=== PATIENT | male | born 1940 | race African-American/Black ===

== ENCOUNTER 2016-11-10 16:15 | Emergency (ER) | payer OTHER ==
[~2016-11-10] VITALS: Ht 182.9 cm; Wt 78.0 kg
[~2016-11-10 16:15] MED LIST: AMLO5TAB22 PO; ASPI325T PO; LISI-363 PO; LORA0.5T PO; LORTA5 PO; METF-324 PO; PROT40TA PO; RANI150 PO
[2016-11-10 16:20] VITALS: BP 168/78; PULSE 44; RESP 14; TEMP 97.7; O2SAT 97
[2016-11-10 16:55] VITALS: BP 164/90; PULSE 65; RESP 15; O2SAT 99
[2016-11-10] MEDS ORDERED: METF-382 PO (17:00)
[2016-11-10] MEDS ORDERED: LISI-515 PO (17:00)
[2016-11-10] MEDS ORDERED: AMLO5TAB2 PO (17:00)
[2016-11-10] MEDS ORDERED: LORA-373 PO (17:00)
[2016-11-10] MEDS ORDERED: ASPI1TAB69 PO (17:00)
--- NOTE | 2016-11-10 17:26 | RADRPT ---
EXAM DATE/TIME: 11/10/2016 17:01 [facility] COMPARISON: ABDOMEN FLAT & UPRIGHT, April 13, 2016, 16:23. INDICATIONS : Shortness of breath. MEDICAL HISTORY : None. SURGICAL HISTORY : None. ENCOUNTER: Initial ACUITY: 1 day PAIN SCORE: 0/10 LOCATION: Bilateral chest FINDINGS: The heart is mildly enlarged. There are chronic appearing interstitial changes. The lungs are otherwi se clear. Visualized bony structures are grossly intact. CONCLUSION: 1. Chronic appearing interstitial changes. No acute abnormality. Anthony Morse MD on November 10, 2016 at 17:23 Board Certified Radiologist. This report was verified electronically.
--- NOTE | 2016-11-10 17:33 | PD ---
HPI Chief Complaint: Cardiac Complaint Time Seen by Provider: 16:46 Travel History International Travel<30 days: No Contact w/Intl Traveler<30days: No Traveled to known affect area: No History of Present Illness HPI 76-year-old male complains of right foot weakness. Patient states that the symptoms started 2 days ago. Patient has history of CVA in 2008 with resultant in the extremity weakness since then. Patient states that he has increasing weakness and right foot for the past 2 days. Patient denies any headache. Patient denies any chest pain or shortness of breath. Patient denies abdominal pain. Patient denies any other focal weakness or numbness of extremity. Patient denies any problem with bowel or bladder control. Patient has history of hypertension, diabetes, is lipedema. Patient is a smoker. Patient denies any problem with speech or visual problem. PFSH Past Medical History Hx Anticoagulant Therapy: Yes (ASPRIN ) Atrial Fibrillation: Yes Blood Disorders: No Anxiety: Yes Cancer: No Cardiovascular Problems: Yes High Cholesterol: Yes Chemotherapy: No Cerebrovascular Accident: Yes (2008) Diabetes: Yes Patient Takes Glucophage: Yes (11/07/16 0900) Diminished Hearing: No Endocrine: Yes Genitourinary: No Hiatal Hernia: Yes Hypertension: Yes Immune Disorder: No Musculoskeletal: No Neurologic: No Psychiatric: No Reproductive: No Respiratory: No Past Surgical History Abdominal Surgery: Yes Other Surgery: Yes (hernia surgery, twisted colon surgery) Social History Alcohol Use: No Tobacco Use: Yes Substance Use: No Allergies-Medications (Allergen,Severity, Reaction): Coded Allergies: No Known Allergies (Verified , 05/02/16) Reported Meds & Prescriptions Reported Meds & Active Scripts Active Reported Metformin ER (Metformin HCl) 1,000 Mg Booker 1,000 Mg PO DAILY With evening meal Lorazepam 0.5 Mg Tab 0.5 Mg PO BID PRN Lisinopril 20 Mg Tab 20 Mg PO DAILY Aspirin 81 Mg Tabdr 81 Mg PO DAILY Amlodipine (Amlodipine Besylate) 5 Mg Tab 5 Mg PO DAILY Review of Systems General / Constitutional: No: Fever Eyes: No: Visual changes HENT: No: Headaches Cardiovascular: No: Chest Pain or Discomfort Respiratory: No: Shortness of Breath Gastrointestinal: No: Abdominal Pain Genitourinary: No: Dysuria Musculoskeletal: Positive: Weakness, No: Pain Skin: No Rash Neurologic: No: Weakness Psychiatric: No: Depression Endocrine: No: Polydipsia Hematologic/Lymphatic: No: Easy Bruising Physical Exam Narrative GENERAL: Well-nourished, well-developed patient. SKIN: Warm and dry. HEAD: Normocephalic. EYES: No scleral icterus. No injection or drainage. NECK: Supple, trachea midline. No JVD or lymphadenopathy. CARDIOVASCULAR: Regular rate and rhythm without murmurs, gallops, or rubs. RESPIRATORY: Breath sounds equal bilaterally. No accessory muscle use. GASTROINTESTINAL: Abdomen soft, non-tender, nondistended. MUSCULOSKELETAL: No cyanosis, or edema. BACK: Nontender without obvious deformity. No CVA tenderness. Neurologic exam: Patient is awake and alert oriented 3. No obvious focal neurological deficit. Sensory function intact on the right foot compared to left foot. Strength equal bilaterally. Data Data Last Documented VS Vital Signs Date Time Temp Pulse Resp B/P Pulse Ox O2 Delivery O2 Flow Rate FiO2 11/10/16 17:41 99 Room Air 11/10/16 16:55 65 15 164/90 11/10/16 16:20 97.7 Orders Electrocardiogram (11/10/16 ) Complete Blood Count With Diff (11/10/16 16:59) Comprehensive Metabolic Panel (11/10/16 16:59) Prothrombin Time / Inr (Pt) (11/10/16 16:59) Act Partial Throm Time (Ptt) (11/10/16 16:59) Urinalysis - C+S If Indicated (11/10/16 16:59) Thyroid Stimulating Hormone (11/10/16 16:59) Chest, Single Ap (11/10/16 16:59) Ct Brain W/O Iv Contrast(Rout) (11/10/16 16:59) Iv Access Insert/Monitor (11/10/16 16:59) Ecg Monitoring (11/10/16 16:59) Oximetry (11/10/16 16:59) Mri L Spine W/O Contrast (11/10/16 17:05) Labs Laboratory Tests Test 11/10/16 11/10/16 17:10 17:27 White Blood Count 5.1 TH/MM3 Red Blood Count 4.04 MIL/MM3 Hemoglobin 11.6 GM/DL Hematocrit 35.5 % Mean Corpuscular Volume 87.7 FL Mean Corpuscular Hemoglobin 28.7 PG Mean Corpuscular Hemoglobin 32.7 % Concent Red Cell Distribution Width 16.0 % Platelet Count 260 TH/MM3 Mean Platelet Volume 9.1 FL Neutrophils (%) (Auto) 59.0 % Lymphocytes (%) (Auto) 29.7 % Monocytes (%) (Auto) 9.6 % Eosinophils (%) (Auto) 1.2 % Basophils (%) (Auto) 0.5 % Neutrophils # (Auto) 3.0 TH/MM3 Lymphocytes # (Auto) 1.5 TH/MM3 Monocytes # (Auto) 0.5 TH/MM3 Eosinophils # (Auto) 0.1 TH/MM3 Basophils # (Auto) 0.0 TH/MM3 CBC Comment DIFF FINAL Differential Comment Prothrombin Time 10.9 SEC Prothromb Time International 1.0 RATIO Ratio Activated Partial 29.1 SEC Thromboplast Time Sodium Level 141 MEQ/L Potassium Level 3.5 MEQ/L Chloride Level 107 MEQ/L Carbon Dioxide Level 27.8 MEQ/L Anion Gap 6 MEQ/L Blood Urea Nitrogen 19 MG/DL Creatinine 0.90 MG/DL Estimat Glomerular Filtration 99 ML/MIN Rate Random Glucose 159 MG/DL Calcium Level 8.5 MG/DL Total Bilirubin 0.3 MG/DL Aspartate Amino Transf 10 U/L (AST/SGOT) Alanine Aminotransferase 19 U/L (ALT/SGPT) Alkaline Phosphatase 59 U/L Total Protein 7.2 GM/DL Albumin 3.9 GM/DL Thyroid Stimulating Hormone 0.892 uIU/ML 3rd Gen Urine Color YELLOW Urine Turbidity CLEAR Urine pH 6.0 Urine Specific [place] 1.026 Urine Protein TRACE mg/dL Urine Glucose (UA) 70 mg/dL Urine Ketones NEG mg/dL Urine Occult Blood NEG Urine Nitrite NEG Urine Bilirubin NEG Urine Urobilinogen LESS THAN 2.0 MG/DL Urine Leukocyte Esterase NEG Urine WBC 1 /hpf Urine Mucus FEW /lpf Microscopic Urinalysis Comment CULT NOT INDICATED MDM Medical Decision Making Medical Screen Exam Complete: Yes Emergency Medical Condition: Yes Interpretation(s) Last Impressions Head CT 11/10/161658 Signed Impressions: Service Date/Time: Thursday, November 10, 2016 17:42 - CONCLUSION: 1. No acute hemorrhage or evidence of acute infarction. 2. Atrophy and chronic small vessel ischemic change. Morro Lopez MD Chest X-Ray 11/10/161658 Signed Impressions: Service Date/Time: Thursday, November 10, 2016 17:01 - CONCLUSION: 1. Chronic appearing interstitial changes. No acute abnormality. Anthony Morse MD 1902 p.m. CBC within normal limit. CMP within normal limit. UA is negative. Differential Diagnosis Differential diagnosis including neuropathy, spinal stenosis, CVA, electrolyte abnormality. Narrative Course 76-year-old male with right foot weakness for 2 days. History of CVA in the past. Leeroy Courtney MD Nov 10, 2016 17:33
[2016-11-10 17:34] LABS: BASOPHIL % 0.5 % (0.0-2.0); EOSINOPHIL # 0.1 TH/MM3 (0-0.4); EOSINOPHIL % 1.2 % (0.0-4.0); HEMATOCRIT 35.5 % (39.0-51.0); HEMO FLAGS DIFF FINAL; LYMPH % 29.7 % (9.0-44.0); LYMPHOCYTE # 1.5 TH/MM3 (1.0-4.8); MEAN CELL VOLUME 87.7 FL (80.0-100.0); MEAN CORPUSCULAR HEMOGLOBIN 28.7 PG (27.0-34.0); MEAN CORPUSCULAR HGB CONC 32.7 % (32.0-36.0); MONO % 9.6 % (0.0-8.0); PLATELET COUNT 260 TH/MM3 (150-450); RED BLOOD COUNT 4.04 MIL/MM3 (4.50-5.90); WHITE BLOOD COUNT 5.1 TH/MM3 (4.0-11.0)
[2016-11-10 17:36] LABS: APTT (PATIENT) 29.1 SEC (24.3-30.1); PROTHROMBIN TIME - PATIENT 10.9 SEC (9.8-11.6)
[2016-11-10 17:41] VITALS: O2SAT 99
[2016-11-10 17:44] LABS: ANION GAP 6 MEQ/L (5-15); BICARBONATE 27.8 MEQ/L (21.0-32.0); BLOOD UREA NITROGEN 19 MG/DL (7-18); CHLORIDE 107 MEQ/L (98-107); POTASSIUM 3.5 MEQ/L (3.5-5.1); SODIUM (NA) 141 MEQ/L (136-145)
--- NOTE | 2016-11-10 17:50 | RADRPT ---
EXAM DATE/TIME: 11/10/2016 17:42 [facility] COMPARISON: CT BRAIN W/O CONTRAST, February 13, 2010, 18:16. INDICATIONS : Generalized weakness; evaluate for CVA. RADIATION DOSE: 42.65 CTDIvol (mGy) MEDICAL HISTORY : Cerebrovascular disease. Cardiovascular disease Hypertension. SURGICAL HISTORY : None. ENCOUNTER: Initial ACUITY: 1 day PAIN SCALE: 0/10 LOCATION: cranial TECHNIQUE: Multiple contiguous axial images were obtained of the head. Using automated exposure control and adj ustment of the mA and/or kV according to patient size, radiation dose was kept as low as reasonably a chievable to obtain optimal diagnostic quality images. FINDINGS: CEREBRUM: The ventricles are normal for age. Patchy periventricular white matter lucencies are again noted. No evidence of midline shift, mass lesion, hemorrhage or acute infarction. No extra-axial fluid collect ions are seen. POSTERIOR FOSSA: The cerebellum and brainstem are intact. The 4th ventricle is midline. The cerebellopontine angle i s unremarkable. EXTRACRANIAL: The visualized portion of the orbits is intact. SKULL: The calvaria is intact. No evidence of skull fracture. CONCLUSION: 1. No acute hemorrhage or evidence of acute infarction. 2. Atrophy and chronic small vessel ischemic change. Morro Lopez MD on November 10, 2016 at 17:47 Board Certified Radiologist. This report was verified electronically.
[2016-11-10 17:55] LABS: ALKALINE PHOSPHATASE 59 U/L (45-117); ALT (GPT) 19 U/L (12-78); AST (GOT) 10 U/L (15-37); GLOMERULAR FILTRATION RATE 99 ML/MIN (>89); TOTAL BILIRUBIN ADULT 0.3 MG/DL (0.2-1.0)
[2016-11-10 17:58] LABS: BLOOD, URINE NEG (NEG); COMMENT (UR) CULT NOT INDICATED; CULTURE IF INDICATED CULT NOT INDICATED; GLUCOSE,URINE 70 mg/dL (NEG); KETONE, URINE NEG (NEG); MUCUS URINE FEW /lpf (OCC); NITRITE,URINE NEG (NEG); URINE COLOR YELLOW (YELLW/STRAW)
[2016-11-10 19:01] VITALS: BP 163/88; PULSE 68; RESP 16; O2SAT 100
--- NOTE | 2016-11-10 20:03 | RADRPT ---
EXAM DATE/TIME: 11/10/2016 18:25 [facility] COMPARISON: No previous studies available for comparison. INDICATIONS : Right leg weakness. MEDICAL HISTORY : Diabetes mellitus type 2. Stroke SURGICAL HISTORY : Inguinal hernia repair. ENCOUNTER: Initial ACUITY: 2 day PAIN SCORE: 2/10 LOCATION: Back TECHNIQUE: Multiplanar multisequence MRI of the lumbar spine was performed without contrast. FINDINGS: The most caudal appearing lumbar vertebra is numbered as L5. VERTEBRAE: Homogeneous signal. Normal alignment. CONUS: Normal level and configuration. T12-L1: The thecal sac has a normal diameter. No evidence of disc bulge or protrusion. The neural foramina are patent bilaterally. L1-L2: Disc demonstrates decreased signal. A significant impression on the thecal sac is not seen. The neural foramina are normal. There is mild facet hypertrophy. L2-L3: Disc demonstrates decreased signal. There is mild bulging. There is mild facet hypertrophy. There continues to be CSF around the nerve roots. The disc bulge is asymmetric being somewhat worse on the left causing some narrowing of the left neural foramina. L3-L4: There is mild diffuse disc bulge. There is moderate facet and ligamentum flavum hypertrophy leading to moderate narrowing of the thecal sac with a very small amount of CSF seen around the nerve roots. The disc and facet changes cause mild narrowing of the neural foramina especially on the rig ht. L4-L5: There is mild diffuse disc bulge and moderate facet and ligamentum flavum hypertrophy causing moderate narrowing of the thecal sac. Minimal CSF is seen around the nerve roots at the disc level. There is narrowing of the neural foramina being worse on the right. This appears to mainly be secon judith to the facet and ligamentum flavum hypertrophy. L5-S1: The disc space is grossly intact. Significant spinal stenosis is not appreciated. There is m oderate facet hypertrophy. The neural foramina are normal. CONCLUSION: 1. Mild disc bulges and moderate facet and ligamentum flavum hypertrophy leading to moderate narrowin g of the thecal sac at the L3-L4 and L4-L5 levels. 2. Areas of neural foraminal narrowing at multiple levels as described above. The most prominently ef fected level is the right L4-L5 level. It appears much of the neural foramina narrowing is secondary to the facet and ligamentum flavum hypertrophy. Nimesh Wilde MD on November 10, 2016 at 19:43 Board Certified Radiologist. This report was verified electronically.
--- NOTE | 2016-11-10 20:17 | PD ---
Physical Exam Date Seen by Provider: Nov 10, 2016 Narrative care assumed from Dr. Courtney at 1900 pending MRI. The case has already been discussed with Dr. Aguirre and disposition already planned pending no surprises on MRI. Data Data Last Documented VS Vital Signs Date Time Temp Pulse Resp B/P Pulse Ox O2 Delivery O2 Flow Rate FiO2 11/10/16 21:00 62 16 165/81 100 Room Air 11/10/16 16:20 97.7 Orders Electrocardiogram (11/10/16 ) Complete Blood Count With Diff (11/10/16 16:59) Comprehensive Metabolic Panel (11/10/16 16:59) Prothrombin Time / Inr (Pt) (11/10/16 16:59) Act Partial Throm Time (Ptt) (11/10/16 16:59) Urinalysis - C+S If Indicated (11/10/16 16:59) Thyroid Stimulating Hormone (11/10/16 16:59) Chest, Single Ap (11/10/16 16:59) Ct Brain W/O Iv Contrast(Rout) (11/10/16 16:59) Iv Access Insert/Monitor (11/10/16 16:59) Ecg Monitoring (11/10/16 16:59) Oximetry (11/10/16 16:59) Mri L Spine W/O Contrast (11/10/16 17:05) Labs Laboratory Tests Test 11/10/16 11/10/16 17:10 17:27 White Blood Count 5.1 TH/MM3 Red Blood Count 4.04 MIL/MM3 Hemoglobin 11.6 GM/DL Hematocrit 35.5 % Mean Corpuscular Volume 87.7 FL Mean Corpuscular Hemoglobin 28.7 PG Mean Corpuscular Hemoglobin 32.7 % Concent Red Cell Distribution Width 16.0 % Platelet Count 260 TH/MM3 Mean Platelet Volume 9.1 FL Neutrophils (%) (Auto) 59.0 % Lymphocytes (%) (Auto) 29.7 % Monocytes (%) (Auto) 9.6 % Eosinophils (%) (Auto) 1.2 % Basophils (%) (Auto) 0.5 % Neutrophils # (Auto) 3.0 TH/MM3 Lymphocytes # (Auto) 1.5 TH/MM3 Monocytes # (Auto) 0.5 TH/MM3 Eosinophils # (Auto) 0.1 TH/MM3 Basophils # (Auto) 0.0 TH/MM3 CBC Comment DIFF FINAL Differential Comment Prothrombin Time 10.9 SEC Prothromb Time International 1.0 RATIO Ratio Activated Partial 29.1 SEC Thromboplast Time Sodium Level 141 MEQ/L Potassium Level 3.5 MEQ/L Chloride Level 107 MEQ/L Carbon Dioxide Level 27.8 MEQ/L Anion Gap 6 MEQ/L Blood Urea Nitrogen 19 MG/DL Creatinine 0.90 MG/DL Estimat Glomerular Filtration 99 ML/MIN Rate Random Glucose 159 MG/DL Calcium Level 8.5 MG/DL Total Bilirubin 0.3 MG/DL Aspartate Amino Transf 10 U/L (AST/SGOT) Alanine Aminotransferase 19 U/L (ALT/SGPT) Alkaline Phosphatase 59 U/L Total Protein 7.2 GM/DL Albumin 3.9 GM/DL Thyroid Stimulating Hormone 0.892 uIU/ML 3rd Gen Urine Color YELLOW Urine Turbidity CLEAR Urine pH 6.0 Urine Specific [place] 1.026 Urine Protein TRACE mg/dL Urine Glucose (UA) 70 mg/dL Urine Ketones NEG mg/dL Urine Occult Blood NEG Urine Nitrite NEG Urine Bilirubin NEG Urine Urobilinogen LESS THAN 2.0 MG/DL Urine Leukocyte Esterase NEG Urine WBC 1 /hpf Urine Mucus FEW /lpf Microscopic Urinalysis Comment CULT NOT INDICATED MDM Supervised Visit with [facility]: No Narrative Course MRI: 1. Mild disc bulges and moderate facet and ligamentum flavum hypertrophy leading to moderate narrowing of the thecal sac at the L3-L4 and L4-L5 levels. 2. Areas of neural foraminal narrowing at multiple levels as described above. The most prominently effected level is the right L4-L5 level. It appears much of the neural foramina narrowing is secondary to the facet and ligamentum flavum hypertrophy. The patient is here with weakness. Diagnosis Primary Impression: Lumbar radiculopathy, acute Referrals: Ric Brannon MD, James A. PhD 3 days Patient Instructions: General Instructions Disposition: 01 DISCHARGE HOME Condition: Stable [place] Velez MD Nov 10, 2016 20:17
[2016-11-10 21:00] VITALS: BP 165/81; PULSE 62; RESP 16; O2SAT 100
--- NOTE | 2016-11-11 16:33 | EKG ---
Date Performed: 11/10/2016 Time Performed: 16:28:45 PTAGE: 76 years EKG: Sinus rhythm WITH FREQUENT SUPRAVENTRICULAR PREMATURE COMPLEXES IN A BIGEMINAL PATTERN LEFT ATRIAL ENLARGEMENT PO SSIBLE LEFT VENTRICULAR HYPERTROPHY MODERATE T-WAVE ABNORMALITY, CONSIDER LATERAL ISCHEMIA Compared t o PREVIOUS TRACING , the ventricular bigeminy with abberant conduction is new. LVH was seen in the previous tracing ABNORMAL ECG INTERPRETATION BASED ON A DEFAULT AGE OF 40 YEARS PREVIOUS TRAC IN11/10/2016 16.27 DOCTOR: Jarred Gomes Interpretating Date/Time 11/11/2016 16:31:59
== END 2016-11-10 23:03 | disposition home or self-care (01) ==
LOC: NEPC 16:15
DX: M54.16 Radiculopathy, lumbar region (principal); I25.2 Old myocardial infarction; I48.91 Unspecified atrial fibrillation; I10 Essential (primary) hypertension; R94.31 Abnormal electrocardiogram [ECG] [EKG]; E78.00 Pure hypercholesterolemia, unspecified; E11.9 Type 2 diabetes mellitus without complications; Z79.84 Long term (current) use of oral hypoglycemic drugs; Z79.82 Long term (current) use of aspirin
CPT/HCPCS: 70450; 71010; 72148; 80053; 81001; 84443; 85025; 85610; 85730; 93005

== ENCOUNTER 2017-07-23 18:30 | Emergency (ER) | payer OTHER ==
[~2017-07-23] VITALS: Ht 185.4 cm; Wt 77.0 kg
[~2017-07-23 18:30] MED LIST changes: +AMLO5TAB2 PO; -AMLO5TAB22 PO; +ASPI1TAB69 PO; -ASPI325T PO; -LISI-363 PO; +LISI-515 PO; -LORTA5 PO; -METF-324 PO; +METF-382 PO; -PROT40TA PO; -RANI150 PO
[2017-07-23 18:33] VITALS: BP 247/114; PULSE 136; RESP 18; TEMP 98; O2SAT 96
[2017-07-23 18:55] VITALS: BP 171/89; PULSE 91; RESP 16; TEMP 98.6; O2SAT 100
[2017-07-23] MEDS ORDERED: SODIUM CHLORIDE 0.9% FLUSH 10 ML FLUSH IVF PRN ×2 (19:00)
[2017-07-23] MEDS ORDERED: ONDANSETRON HCL 4 MG/2 ML VIAL IVP ONE (19:00)
[2017-07-23] MEDS ORDERED: MORPHINE SULFATE 2 MG/ML INJ IV PUSH ONE (19:00)
[2017-07-23] MEDS ORDERED: ASPI-516 CHEW (19:08)
[2017-07-23 20:01] LABS: AUTOMATED NEUTROPHIL # 4.9 TH/MM3 (1.8-7.7); BASOPHIL % 0.5 % (0.0-2.0); HEMATOCRIT 32.7 % (39.0-51.0); HEMO FLAGS DIFF FINAL; LYMPH % 16.9 % (9.0-44.0); LYMPHOCYTE # 1.1 TH/MM3 (1.0-4.8); MEAN CELL VOLUME 88.7 FL (80.0-100.0); MEAN CORPUSCULAR HEMOGLOBIN 30.3 PG (27.0-34.0); MEAN CORPUSCULAR HGB CONC 34.2 % (32.0-36.0); MONO % 4.6 % (0.0-8.0); PLATELET COUNT 299 TH/MM3 (150-450); RED BLOOD COUNT 3.69 MIL/MM3 (4.50-5.90); WHITE BLOOD COUNT 6.2 TH/MM3 (4.0-11.0)
[2017-07-23 20:09] LABS: ANION GAP 8 MEQ/L (5-15); AST (GOT) 10 U/L (15-37); BICARBONATE 24.8 MEQ/L (21.0-32.0); BLOOD UREA NITROGEN 8 MG/DL (7-18); CHLORIDE 101 MEQ/L (98-107); GLOMERULAR FILTRATION RATE 87 ML/MIN (>89); POTASSIUM 3.3 MEQ/L (3.5-5.1); SODIUM (NA) 134 MEQ/L (136-145)
[2017-07-23 20:10] LABS: ALT (GPT) 25 U/L (12-78)
[2017-07-23 20:12] LABS: ALKALINE PHOSPHATASE 79 U/L (45-117); TOTAL BILIRUBIN ADULT 0.3 MG/DL (0.2-1.0)
[2017-07-23 20:24] LABS: BLOOD, URINE NEG (NEG); GLUCOSE,URINE 1000 mg/dL (NEG); KETONE, URINE NEG (NEG); NITRITE,URINE NEG (NEG); URINE COLOR LIGHT-YELLOW (YELLW/STRAW)
--- NOTE | 2017-07-23 20:26 | RADRPT ---
EXAM DATE/TIME: 07/23/2017 20:11 [facility] COMPARISON: CT ABDOMEN & PELVIS W CONTRAST, April 29, 2016, 21:40. INDICATIONS : Urinary retention and abdominal distention. ORAL CONTRAST: No oral contrast ingested. RADIATION DOSE: 10.53 CTDIvol (mGy) MEDICAL HISTORY : Hypertension. Hernia, hiatal. Diabetes mellitus type 1.A-fib SURGICAL HISTORY : None. ENCOUNTER: Initial ACUITY: 3 days PAIN SCALE: 8/10 LOCATION: lower abdomen TECHNIQUE: Volumetric scanning of the abdomen and pelvis was performed. Using automated exposure control and ad justment of the mA and/or kV according to patient size, radiation dose was kept as low as reasonably achievable to obtain optimal diagnostic quality images. DICOM format image data is available electro nically for review and comparison. FINDINGS: LOWER LUNGS: The visualized lower lungs are clear. LIVER: Homogeneous density without lesion. There is no dilation of the biliary tree. No calcified gallston es. SPLEEN: Normal size without lesion. PANCREAS: Within normal limits. KIDNEYS: Normal in size and shape. There is no visualized solid mass, stone, or hydronephrosis. The previousl y noted cystic lesions are again visualized and do not appear significantly changed. ADRENAL GLANDS: Within normal limits. VASCULAR: There is no aortic aneurysm. BOWEL/MESENTERY: Postsurgical changes are noted in the right lower quadrant with an anastomotic randy. The stomach, small bowel, and colon demonstrate no acute abnormality. There is no free intraperitoneal air or flu id. ABDOMINAL WALL: Within normal limits. RETROPERITONEUM: There is no lymphadenopathy. BLADDER: No wall thickening or mass. REPRODUCTIVE: Within normal limits. INGUINAL: There is no lymphadenopathy or hernia. MUSCULOSKELETAL: Within normal limits for patient age. CONCLUSION: 1. The kidneys do not appear significantly changed with bilateral cystic lesions again noted. These a re not as well-visualized as on the prior study due to the lack of intravenous contrast. There is no evidence of hydronephrosis. 2. Surgical changes are noted involving the bowel. Morro Lopez MD on July 23, 2017 at 20:21 Board Certified Radiologist. This report was verified electronically.
[2017-07-23 20:27] LABS: COMMENT (UR) CULT NOT INDICATED; CULTURE IF INDICATED CULT NOT INDICATED
--- NOTE | 2017-07-23 20:47 | PD ---
HPI Chief Complaint: Complaint Time Seen by Provider: 18:48 Travel History International Travel<30 days: No Contact w/Intl Traveler<30days: No Traveled to known affect area: No History of Present Illness HPI 76-year-old Afro-[place] male presents to emergency Department with urinary urgency, and difficulty passing urine, as well as episodes of incontinence [address] this evening[address] Patient states his symptoms have gotten progressively worse over the past 2 days. He denies fever, chills, flank pain, nausea, vomiting, or significant abdominal pain other than anterior pelvic cramping. He denies penile discharge. No previous history of prostate problems. Patient only takes lisinopril, metformin, and a statin for high cholesterol. Patient has never seen a urologist in the past. No history of kidney stones. He describes his pain as crampy and as if he needs to pass urine but when he tries he can only passes a little bit. He has no known drug allergies. PFSH Past Medical History Hx Anticoagulant Therapy: Yes (ASPRIN ) Atrial Fibrillation: Yes Blood Disorders: No Anxiety: Yes Cancer: No Cardiovascular Problems: Yes High Cholesterol: Yes Chemotherapy: No Cerebrovascular Accident: Yes (2008) Diabetes: Yes Patient Takes Glucophage: No (METFORMIN ) Diminished Hearing: No Endocrine: Yes Genitourinary: No Hiatal Hernia: Yes Hypertension: Yes Immune Disorder: No Musculoskeletal: No Neurologic: No Psychiatric: No Reproductive: No Respiratory: No Past Surgical History Abdominal Surgery: Yes Other Surgery: Yes (hernia surgery, twisted colon surgery) Social History Alcohol Use: No Tobacco Use: Yes Substance Use: No Allergies-Medications (Allergen,Severity, Reaction): Coded Allergies: No Known Allergies (Verified Adverse Reaction, Unknown, 07/23/17) Reported Meds & Prescriptions Reported Meds & Active Scripts Active Reported Aspirin 81 Mg Chew 81 Mg CHEW DAILY Metformin ER (Metformin HCl) 1,000 Mg Booker 1,000 Mg PO DAILY With evening meal Lorazepam 0.5 Mg Tab 0.5 Mg PO BID PRN Lisinopril 20 Mg Tab 20 Mg PO DAILY Aspirin 81 Mg Tabdr 81 Mg PO DAILY Amlodipine (Amlodipine Besylate) 5 Mg Tab 5 Mg PO DAILY Review of Systems Except as stated in HPI: all other systems reviewed are Neg General / Constitutional: No: Fever Eyes: No: Visual changes HENT: No: Headaches Cardiovascular: No: Chest Pain or Discomfort Respiratory: No: Shortness of Breath Gastrointestinal: No: Abdominal Pain Genitourinary: Positive: Urgency, Frequency, Decreased Urinary Output, Hesitancy, Dribbling, Incontinence, Pelvic Pain, No: Dysuria, Nocturia, Hematuria, Oliguria, Flank Pain, Dyspareunia, Discharge, Dysmenorrhea, Menorrhagia, Metorrhagia, Vaginal Bleeding Musculoskeletal: No: Pain Skin: No Rash Neurologic: No: Weakness Psychiatric: No: Depression Endocrine: No: Polydipsia Hematologic/Lymphatic: No: Easy Bruising Physical Exam Narrative GENERAL: Patient appears in mild distress SKIN: Warm and dry. Normal color. Normal turgor. No rash HEAD: Atraumatic. Normocephalic. EYES: Pupils equal and round. No scleral icterus. No injection or drainage. ENT: No nasal bleeding or discharge. Mucous membranes pink and moist. Pharynx is clear. Airway is patent. NECK: Trachea midline. Supple nontender. CARDIOVASCULAR: Regular rate and rhythm. RESPIRATORY: No accessory muscle use. Clear to auscultation. Breath sounds equal bilaterally. GASTROINTESTINAL: Abdomen soft, mild to moderate suprapubic, no significant distention. Hepatic and splenic margins not palpable. No CVA tenderness. MUSCULOSKELETAL: Extremities without clubbing, cyanosis, or edema. No obvious deformities. NEUROLOGICAL: Awake and alert. No obvious cranial nerve deficits. Motor grossly within normal limits. Five out of 5 muscle strength in the arms and legs. Normal speech. PSYCHIATRIC: Appropriate mood and affect; insight and judgment normal. Data Data Last Documented VS Vital Signs Date Time Temp Pulse Resp B/P (MAP) Pulse Ox O2 Delivery O2 Flow Rate FiO2 07/23/17 18:59 92 18 07/23/17 18:55 98.6 171/89 (116) 100 Orders Orders Complete Blood Count With Diff (07/23/17 18:57) Comprehensive Metabolic Panel (07/23/17 18:57) Urinalysis - C+S If Indicated (07/23/17 18:57) Iv Access Insert/Monitor (07/23/17 18:57) Ondansetron Inj (Zofran Inj) (07/23/17 19:00) Sodium Chloride 0.9% Flush (Ns Flush) (07/23/17 19:00) Morphine Inj (Morphine Inj) (07/23/17 19:00) Sodium Chloride 0.9% Flush (Ns Flush) (07/23/17 19:00) Ct Abd/Pel W/O Iv Contrast (07/23/17 18:57) Urinary Catheter Insert/Apply (07/23/17 18:57) Labs Laboratory Tests Test 07/23/17 19:17 07/23/17 19:23 White Blood Count 6.2 TH/MM3 Red Blood Count 3.69 MIL/MM3 Hemoglobin 11.2 GM/DL Hematocrit 32.7 % Mean Corpuscular Volume 88.7 FL Mean Corpuscular Hemoglobin 30.3 PG Mean Corpuscular Hemoglobin Concent 34.2 % Red Cell Distribution Width 16.0 % Platelet Count 299 TH/MM3 Mean Platelet Volume 9.1 FL Neutrophils (%) (Auto) 78.0 % Lymphocytes (%) (Auto) 16.9 % Monocytes (%) (Auto) 4.6 % Eosinophils (%) (Auto) 0.0 % Basophils (%) (Auto) 0.5 % Neutrophils # (Auto) 4.9 TH/MM3 Lymphocytes # (Auto) 1.1 TH/MM3 Monocytes # (Auto) 0.3 TH/MM3 Eosinophils # (Auto) 0.0 TH/MM3 Basophils # (Auto) 0.0 TH/MM3 CBC Comment DIFF FINAL Differential Comment Blood Urea Nitrogen 8 MG/DL Creatinine 1.01 MG/DL Random Glucose 280 MG/DL Total Protein 7.2 GM/DL Albumin 3.5 GM/DL Calcium Level 8.7 MG/DL Alkaline Phosphatase 79 U/L Aspartate Amino Transf (AST/SGOT) 10 U/L Alanine Aminotransferase (ALT/SGPT) 25 U/L Total Bilirubin 0.3 MG/DL Sodium Level 134 MEQ/L Potassium Level 3.3 MEQ/L Chloride Level 101 MEQ/L Carbon Dioxide Level 24.8 MEQ/L Anion Gap 8 MEQ/L Estimat Glomerular Filtration Rate 87 ML/MIN Urine Color LIGHT-YELLOW Urine Turbidity CLEAR Urine pH 5.0 Urine Specific [place] 1.007 Urine Protein NEG mg/dL Urine Glucose (UA) 1000 mg/dL Urine Ketones NEG mg/dL Urine Occult Blood NEG Urine Nitrite NEG Urine Bilirubin NEG Urine Urobilinogen LESS THAN 2.0 MG/DL Urine Leukocyte Esterase NEG Urine RBC LESS THAN 1 /hpf Urine WBC LESS THAN 1 /hpf Microscopic Urinalysis Comment CULT NOT INDICATED MDM Medical Decision Making Medical Screen Exam Complete: Yes Emergency Medical Condition: Yes Medical Record Reviewed: Yes Differential Diagnosis Urinary tract infection. Prostatitis. BPH. Urinary retention. Neurogenic bladder. Kidney stone. Narrative Course Patient is medically stable at time of exam. Post-void residual is assessed and found to be 400 mLs. Labs ordered including CBC, CMP, and urinalysis. CT of the abdomen with IV contrast is ordered. Avila catheter is placed. CBC is unremarkable. CMP is unremarkable. Urinalysis is negative for infection. CT shows: CONCLUSION: 1. The kidneys do not appear significantly changed with bilateral cystic lesions again noted. These are not as well-visualized as on the prior study due to the lack of intravenous contrast. There is no evidence of hydronephrosis. 2. Surgical changes are noted involving the bowel. Avila catheter is left in place with leg bag with instructions. Patient started on Flomax 0.4 mg daily at bedtime #30. Patient is to follow-up with Dr. Vazquez, the urologist on-call as soon as possible. Patient to call for an appointment. Patient can return to emergency Department with any worsening symptoms as needed. Diagnosis Primary Impression: Acute urinary retention Additional Impression: BPH (benign prostatic hyperplasia) Qualified Codes: N40.1 - Benign prostatic hyperplasia with lower urinary tract symptoms; R33.8 - Other retention of urine Referrals: Shawn Vazquez DO call for appointment Patient Instructions: Benign Prostatic Hypertrophy (ED), Avila Catheter Placement and Care (ED), General Instructions, Urinary Retention in Men (DC) Additional Instructions: CBC is unremarkable. CMP is unremarkable. Urinalysis is negative for infection. CT shows: CONCLUSION: 1. The kidneys do not appear significantly changed with bilateral cystic lesions again noted. These are not as well-visualized as on the prior study due to the lack of intravenous contrast. There is no evidence of hydronephrosis. 2. Surgical changes are noted involving the bowel. Avila catheter is left in place with leg bag with instructions. Patient started on Flomax 0.4 mg daily at bedtime #30. Patient is to follow-up with Dr. Vazquez, the urologist on-call as soon as possible. Patient to call for an appointment. Patient can return to emergency Department with any worsening symptoms as needed. Med/Other Pt SpecificInfo: Prescription(s) given Disposition: 01 DISCHARGE HOME Condition: Stable Uday Cheney Jul 23, 2017 20:47
[2017-07-23] MEDS ORDERED: TAMS5CAP PO (20:48)
--- NOTE | 2017-07-23 21:42 | PD ---
Data Data Last Documented VS Vital Signs Date Time Temp Pulse Resp B/P (MAP) Pulse Ox O2 Delivery O2 Flow Rate FiO2 07/23/17 21:57 07/23/17 18:59 92 18 07/23/17 18:55 98.6 100 Orders Orders Complete Blood Count With Diff (07/23/17 18:57) Comprehensive Metabolic Panel (07/23/17 18:57) Urinalysis - C+S If Indicated (07/23/17 18:57) Iv Access Insert/Monitor (07/23/17 18:57) Ondansetron Inj (Zofran Inj) (07/23/17 19:00) Sodium Chloride 0.9% Flush (Ns Flush) (07/23/17 19:00) Morphine Inj (Morphine Inj) (07/23/17 19:00) Sodium Chloride 0.9% Flush (Ns Flush) (07/23/17 19:00) Ct Abd/Pel W/O Iv Contrast (07/23/17 18:57) Urinary Catheter Insert/Apply (07/23/17 18:57) Ed Discharge Order (07/23/17 20:49) Labs Laboratory Tests Test 07/23/17 19:17 07/23/17 19:23 White Blood Count 6.2 TH/MM3 Red Blood Count 3.69 MIL/MM3 Hemoglobin 11.2 GM/DL Hematocrit 32.7 % Mean Corpuscular Volume 88.7 FL Mean Corpuscular Hemoglobin 30.3 PG Mean Corpuscular Hemoglobin Concent 34.2 % Red Cell Distribution Width 16.0 % Platelet Count 299 TH/MM3 Mean Platelet Volume 9.1 FL Neutrophils (%) (Auto) 78.0 % Lymphocytes (%) (Auto) 16.9 % Monocytes (%) (Auto) 4.6 % Eosinophils (%) (Auto) 0.0 % Basophils (%) (Auto) 0.5 % Neutrophils # (Auto) 4.9 TH/MM3 Lymphocytes # (Auto) 1.1 TH/MM3 Monocytes # (Auto) 0.3 TH/MM3 Eosinophils # (Auto) 0.0 TH/MM3 Basophils # (Auto) 0.0 TH/MM3 CBC Comment DIFF FINAL Differential Comment Blood Urea Nitrogen 8 MG/DL Creatinine 1.01 MG/DL Random Glucose 280 MG/DL Total Protein 7.2 GM/DL Albumin 3.5 GM/DL Calcium Level 8.7 MG/DL Alkaline Phosphatase 79 U/L Aspartate Amino Transf (AST/SGOT) 10 U/L Alanine Aminotransferase (ALT/SGPT) 25 U/L Total Bilirubin 0.3 MG/DL Sodium Level 134 MEQ/L Potassium Level 3.3 MEQ/L Chloride Level 101 MEQ/L Carbon Dioxide Level 24.8 MEQ/L Anion Gap 8 MEQ/L Estimat Glomerular Filtration Rate 87 ML/MIN Urine Color LIGHT-YELLOW Urine Turbidity CLEAR Urine pH 5.0 Urine Specific [place] 1.007 Urine Protein NEG mg/dL Urine Glucose (UA) 1000 mg/dL Urine Ketones NEG mg/dL Urine Occult Blood NEG Urine Nitrite NEG Urine Bilirubin NEG Urine Urobilinogen LESS THAN 2.0 MG/DL Urine Leukocyte Esterase NEG Urine RBC LESS THAN 1 /hpf Urine WBC LESS THAN 1 /hpf Microscopic Urinalysis Comment CULT NOT INDICATED MDM Supervised Visit with MONTY: Yes Narrative Course I, Dr. Jama, have reviewed the advance practice practitioner's documentation and am in agreement, met with the patient face to face, made the diagnosis, and the medical decision making was done by me. *My assessment and Findings: The patient is urinary retention. Avila to leg bag. Follow-up with urology. Diagnosis Primary Impression: Acute urinary retention Additional Impression: BPH (benign prostatic hyperplasia) Referrals: Shawn Vazquez DO call for appointment Patient Instructions: General Instructions, Urinary Retention in Men (DC), Benign Prostatic Hypertrophy (ED), Avila Catheter Placement and Care (ED) Departure Forms: Tests/Procedures Additional Instruction: CBC is unremarkable. CMP is unremarkable. Urinalysis is negative for infection. CT shows: CONCLUSION: 1. The kidneys do not appear significantly changed with bilateral cystic lesions again noted. These are not as well-visualized as on the prior study due to the lack of intravenous contrast. There is no evidence of hydronephrosis. 2. Surgical changes are noted involving the bowel. Avila catheter is left in place with leg bag with instructions. Patient started on Flomax 0.4 mg daily at bedtime #30. Patient is to follow-up with Dr. Vazquez, the urologist on-call as soon as possible. Patient to call for an appointment. Patient can return to emergency Department with any worsening symptoms as needed. Scripts Tamsulosin (Flomax) 0.4 Mg Cap 0.4 MG PO HS for Manage Prostate Problems, #30 CAP 0 Refills Prov: Anthony Jama MD 07/23/17 Disposition: 01 DISCHARGE HOME Condition: Stable Anthony Jama MD Jul 23, 2017 21:42
== END 2017-07-23 21:56 | disposition home or self-care (01) ==
LOC: NEPE 18:30
DX: N40.1 Benign prostatic hyperplasia with lower urinary tract symptoms (principal); R33.8 Other retention of urine; R39.15 Urgency of urination; I10 Essential (primary) hypertension; E11.9 Type 2 diabetes mellitus without complications; Z79.84 Long term (current) use of oral hypoglycemic drugs; Z72.0 Tobacco use
CPT/HCPCS: 51702; 74176; 80053; 81001; 85025; 96374; 96375; 99285; J2270; J2405

== ENCOUNTER 2017-09-04 18:40 | Emergency (ER) | payer OTHER ==
[~2017-09-04 18:40] MED LIST changes: +ASPI-516 CHEW; +TAMS5CAP PO
[2017-09-04 18:42] VITALS: BP 140/76; PULSE 90; RESP 16; TEMP 97.4; O2SAT 100
--- NOTE | 2017-09-04 19:19 | PD ---
HPI Chief Complaint: [employer] Problem Time Seen by Provider: 19:06 Travel History International Travel<30 days: No Contact w/Intl Traveler<30days: No Traveled to known affect area: No History of Present Illness HPI patient comes in requesting albarado removal, originally placed 3 weeks ago because he was having trouble urinating back then. he had a urologist follow up which he didn't make because he had no transportation but kept his pcp followup with dr boggs who declined to remove it at that time...patient denies any blood in leg bag, no foul smell, no sedimentation and no abdominal pain, nor any urethral pain and is just requesting removal. PFSH Past Medical History Hx Anticoagulant Therapy: Yes (ASPRIN ) Atrial Fibrillation: Yes Blood Disorders: No Anxiety: Yes Cancer: No Cardiovascular Problems: Yes High Cholesterol: Yes Chemotherapy: No Cerebrovascular Accident: Yes (2008) Diabetes: Yes Patient Takes Glucophage: Yes Diminished Hearing: No Endocrine: Yes Genitourinary: No Hiatal Hernia: Yes Hypertension: Yes Immune Disorder: No Musculoskeletal: No Neurologic: No Psychiatric: No Reproductive: No Respiratory: No Influenza Vaccination: Yes Past Surgical History Abdominal Surgery: Yes Other Surgery: Yes (hernia surgery, twisted colon surgery) Social History Alcohol Use: No Tobacco Use: Yes Substance Use: No Allergies-Medications (Allergen,Severity, Reaction): Coded Allergies: No Known Allergies (Verified Adverse Reaction, Unknown, 07/23/17) Reported Meds & Prescriptions Reported Meds & Active Scripts Active Flomax (Tamsulosin HCl) 0.4 Mg Cap 0.4 Mg PO HS Reported Aspirin 81 Mg Chew 81 Mg CHEW DAILY Metformin ER (Metformin HCl) 1,000 Mg Booker 1,000 Mg PO DAILY With evening meal Lorazepam 0.5 Mg Tab 0.5 Mg PO BID PRN Lisinopril 20 Mg Tab 20 Mg PO DAILY Amlodipine (Amlodipine Besylate) 5 Mg Tab 5 Mg PO DAILY Review of Systems Except as stated in HPI: all other systems reviewed are Neg Physical Exam Narrative GENERAL: SKIN: Warm and dry. HEAD: Atraumatic. Normocephalic. EYES: Pupils equal and round. No scleral icterus. No injection or drainage. ENT: No nasal bleeding or discharge. Mucous membranes pink and moist. NECK: Trachea midline. No JVD. CARDIOVASCULAR: Regular rate and rhythm. RESPIRATORY: No accessory muscle use. Clear to auscultation. Breath sounds equal bilaterally. GASTROINTESTINAL: Abdomen soft, non-tender, nondistended. albarado and leg bag in place MUSCULOSKELETAL: Extremities without clubbing, cyanosis, or edema. No obvious deformities. NEUROLOGICAL: Awake and alert. No obvious cranial nerve deficits. Motor grossly within normal limits. Five out of 5 muscle strength in the arms and legs. Normal speech. PSYCHIATRIC: Appropriate mood and affect; insight and judgment normal. Data Data Last Documented VS Vital Signs Date Time Temp Pulse Resp B/P (MAP) Pulse Ox O2 Delivery O2 Flow Rate FiO2 09/04/17 20:01 09/04/17 18:42 97.4 90 16 100 Orders Orders Remove Urinary Catheter .ONCE (09/04/17 20:09) MDM Medical Decision Making Medical Screen Exam Complete: Yes Emergency Medical Condition: Yes Medical Record Reviewed: Yes Differential Diagnosis n/a Narrative Course patient is here for removal of albarado Diagnosis Primary Impression: Encounter for Albarado catheter removal Referrals: Wally Mooney MD Patient Instructions: Albarado Catheter Removal (DC), General Instructions Disposition: 01 DISCHARGE HOME Condition: Stable Arron Sarmiento MD Sep 04, 2017 19:19
== END 2017-09-04 20:15 | disposition home or self-care (01) ==
LOC: NEPD 18:40
DX: Z46.6 Encounter for fitting and adjustment of urinary device (principal); I48.91 Unspecified atrial fibrillation; F41.9 Anxiety disorder, unspecified; E78.00 Pure hypercholesterolemia, unspecified; E11.9 Type 2 diabetes mellitus without complications; I10 Essential (primary) hypertension; Z86.73 Personal history of transient ischemic attack (TIA), and cerebral infarction without residual deficits; Z79.82 Long term (current) use of aspirin; Z72.0 Tobacco use
CPT/HCPCS: 99283

== ENCOUNTER 2017-09-11 20:55 | Emergency (ER) | payer OTHER ==
[~2017-09-11 20:55] MED LIST changes: -ASPI1TAB69 PO
[2017-09-11 21:01] VITALS: BP 200/108; PULSE 78; RESP 18; TEMP 98.4; O2SAT 97
[2017-09-11 21:26] VITALS: O2SAT 99
[2017-09-11] MEDS ORDERED: SODIUM CHLORIDE 0.9% FLUSH 10 ML FLUSH IV FLUSH PRN (21:45)
[2017-09-11 21:48] LABS: AUTOMATED NEUTROPHIL # 2.7 TH/MM3 (1.8-7.7); BASOPHIL # 0.1 TH/MM3 (0-0.2); BASOPHIL % 1.1 % (0.0-2.0); EOSINOPHIL % 0.8 % (0.0-4.0); HEMATOCRIT 35.7 % (39.0-51.0); HEMOGLOBIN 11.7 GM/DL (13.0-17.0); LYMPH % 39.7 % (9.0-44.0); LYMPHOCYTE # 2.2 TH/MM3 (1.0-4.8); MEAN CELL VOLUME 89.6 FL (80.0-100.0); MEAN CORPUSCULAR HEMOGLOBIN 29.3 PG (27.0-34.0); MEAN CORPUSCULAR HGB CONC 32.7 % (32.0-36.0); MEAN PLATELET VOLUME 8.6 FL (7.0-11.0); MONO % 8.8 % (0.0-8.0); MONOCYTE # 0.5 TH/MM3 (0-0.9); NEUT % 49.6 % (16.0-70.0); PLATELET COUNT 291 TH/MM3 (150-450); RED BLOOD COUNT 3.98 MIL/MM3 (4.50-5.90); WHITE BLOOD COUNT 5.5 TH/MM3 (4.0-11.0)
[2017-09-11 22:06] LABS: BACTERIA, URINE MANY /hpf; BILIRUBIN, URINE NEG (NEG); BLOOD, URINE TRACE (NEG); GLUCOSE,URINE 150 mg/dL (NEG); KETONE, URINE NEG (NEG); NITRITE,URINE NEG (NEG); TRIPLE PHOSPHATE CRYSTAL,URINE OCC /hpf; URINE COLOR YELLOW (YELLW/STRAW); URINE LEUKOCYTE ESTERASE LARGE (NEG); WHITE BLOOD CELL CLUMPS RARE
[2017-09-11] MEDS ORDERED: DIATRIZOATE MEGLUM/DIATRIZOATE SOD 9 ML CUP ONE (22:07)
[2017-09-11 22:11] LABS: PROTHROMBIN TIME - PATIENT 10.3 SEC (9.8-11.6)
[2017-09-11 22:13] LABS: ALBUMIN 3.6 GM/DL (3.4-5.0); AST (GOT) 11 U/L (15-37); BICARBONATE 24.7 MEQ/L (21.0-32.0); BLOOD UREA NITROGEN 17 MG/DL (7-18); CHLORIDE 104 MEQ/L (98-107); CREATININE 0.99 MG/DL (0.60-1.30); GLOMERULAR FILTRATION RATE 89 ML/MIN (>89); GLUCOSE,RANDOM 209 MG/DL (74-106); LIPASE 106 U/L (73-393); SODIUM (NA) 138 MEQ/L (136-145)
[2017-09-11] MEDS ORDERED: cefTRIAXone INJ 1,000 MG in SODIUM CHLORIDE 0.9% INJ 100 ML IV ONE (22:15)
[2017-09-11 22:18] LABS: ALKALINE PHOSPHATASE 80 U/L (45-117); ALT (GPT) 25 U/L (12-78); TOTAL BILIRUBIN ADULT 0.4 MG/DL (0.2-1.0); TOTAL PROTEIN 7.7 GM/DL (6.4-8.2)
--- NOTE | 2017-09-11 22:20 | PD ---
HPI Chief Complaint: Abdominal Pain Time Seen by Provider: 21:40 Travel History International Travel<30 days: No Contact w/Intl Traveler<30days: No Traveled to known affect area: No History of Present Illness HPI 76-year-old male with history of abdominal surgery presents to the emergency room for evaluation of periumbilical abdominal pain without radiation that started earlier today. There is associated nausea and vomiting. He has had 3 episodes of nonbloody non-bilious vomiting today. No diarrhea. He had a normal bowel movement this morning. Denies fever, chills, or night sweats. Patient was just seen in this ED to have his Avila catheter removed one week ago. It was in place for one month for urinary retention. He had a follow-up appointment with his urologist prior to removal but could not find a ride back to the urologist to have it removed since he had a follow-up in the ED. History of hypertension, anxiety, and diabetes. Abdominal surgery is for ventral hernia and twisted colon, per EMR. Patient does not remember. PFSH Past Medical History Hx Anticoagulant Therapy: Yes (ASPRIN ) Atrial Fibrillation: Yes Blood Disorders: No Anxiety: Yes Cancer: No Cardiovascular Problems: Yes High Cholesterol: Yes Chemotherapy: No Cerebrovascular Accident: Yes (2008) Diabetes: Yes Patient Takes Glucophage: Yes Diminished Hearing: No Endocrine: Yes Gastrointestinal Disorders: No Genitourinary: No Hiatal Hernia: Yes Hypertension: Yes Immune Disorder: No Implanted Vascular Access Dvce: No Musculoskeletal: No Neurologic: No Psychiatric: No Reproductive: No Respiratory: No Past Surgical History Abdominal Surgery: Yes Other Surgery: Yes (hernia surgery, twisted colon surgery) Social History Alcohol Use: No Tobacco Use: Yes Substance Use: No Allergies-Medications (Allergen,Severity, Reaction): Coded Allergies: No Known Allergies (Verified Adverse Reaction, Unknown, 09/11/17) Reported Meds & Prescriptions Reported Meds & Active Scripts Active Macrobid (Nitrofurantoin Monohydrate Macrocrystals) 100 Mg Capsule 100 Mg PO BID 10 Days Flomax (Tamsulosin HCl) 0.4 Mg Cap 0.4 Mg PO HS Reported Aspirin 81 Mg Chew 81 Mg CHEW DAILY Metformin ER (Metformin HCl) 1,000 Mg Booker 1,000 Mg PO DAILY With evening meal Lorazepam 0.5 Mg Tab 0.5 Mg PO BID PRN Lisinopril 20 Mg Tab 20 Mg PO DAILY Amlodipine (Amlodipine Besylate) 5 Mg Tab 5 Mg PO DAILY Review of Systems Except as stated in HPI: all other systems reviewed are Neg Physical Exam Narrative GENERAL: Well-nourished, well-developed male in no acute distress. Afebrile. Ambulatory. SKIN: Focused skin assessment warm/dry. HEAD: Normocephalic. EYES: No scleral icterus. No injection or drainage. NECK: Supple, trachea midline. No JVD or lymphadenopathy. CARDIOVASCULAR: Regular rate and rhythm without murmurs, gallops, or rubs. RESPIRATORY: Breath sounds equal bilaterally. No accessory muscle use. GASTROINTESTINAL: Abdomen soft, nondistended. Moderate tenderness to palpation of the periumbilical area. No rebound tenderness. Data Data Last Documented VS Vital Signs Date Time Temp Pulse Resp B/P (MAP) Pulse Ox O2 Delivery O2 Flow Rate FiO2 09/12/17 00:19 09/11/17 22:44 67 18 100 Room Air 09/11/17 21:01 98.4 Orders Orders Complete Blood Count With Diff (09/11/17 21:25) Comprehensive Metabolic Panel (09/11/17 21:25) Urinalysis - C+S If Indicated (09/11/17 21:25) Iv Access Insert/Monitor (09/11/17 21:25) Oxygen Administration (09/11/17 21:25) Oximetry (09/11/17 21:25) Lipase (09/11/17 21:25) Electrocardiogram (09/11/17 ) Prothrombin Time / Inr (Pt) (09/11/17 21:41) Act Partial Throm Time (Ptt) (09/11/17 21:41) Ct Abd/Pel W Iv Contrast(Rout) (09/11/17 21:41) Ecg Monitoring (09/11/17 21:41) Sodium Chloride 0.9% Flush (Ns Flush) (09/11/17 21:45) Oral Contrast - Adult (09/11/17 22:04) Urine Culture (09/11/17 21:27) Diatrizoate Liq ( Gastromadeleine Liq) (09/11/17 22:07) Ceftriaxone Inj (Rocephin Inj) (09/11/17 22:15) Iohexol 350 Inj (Omnipaque 350 Inj) (09/11/17 23:25) Hydroxyzine Pamoate (Vistaril) (09/12/17 00:30) Ed Discharge Order (09/12/17 00:21) Labs Laboratory Tests Test 09/11/17 21:27 09/11/17 21:45 White Blood Count 5.5 TH/MM3 Red Blood Count 3.98 MIL/MM3 Hemoglobin 11.7 GM/DL Hematocrit 35.7 % Mean Corpuscular Volume 89.6 FL Mean Corpuscular Hemoglobin 29.3 PG Mean Corpuscular Hemoglobin Concent 32.7 % Red Cell Distribution Width 15.0 % Platelet Count 291 TH/MM3 Mean Platelet Volume 8.6 FL Neutrophils (%) (Auto) 49.6 % Lymphocytes (%) (Auto) 39.7 % Monocytes (%) (Auto) 8.8 % Eosinophils (%) (Auto) 0.8 % Basophils (%) (Auto) 1.1 % Neutrophils # (Auto) 2.7 TH/MM3 Lymphocytes # (Auto) 2.2 TH/MM3 Monocytes # (Auto) 0.5 TH/MM3 Eosinophils # (Auto) 0.0 TH/MM3 Basophils # (Auto) 0.1 TH/MM3 CBC Comment DIFF FINAL Differential Comment Urine Color YELLOW Urine Turbidity CLOUDY Urine pH 8.0 Urine Specific [place] 1.018 Urine Protein 30 mg/dL Urine Glucose (UA) 150 mg/dL Urine Ketones NEG mg/dL Urine Occult Blood TRACE Urine Nitrite NEG Urine Bilirubin NEG Urine Urobilinogen LESS THAN 2.0 MG/DL Urine Leukocyte Esterase LARGE Urine RBC LESS THAN 1 /hpf Urine WBC /hpf Urine WBC Clumps RARE Urine Triple Phosphate Crystals OCC /hpf Urine Bacteria MANY /hpf Microscopic Urinalysis Comment CULTURE INDICATED Blood Urea Nitrogen 17 MG/DL Creatinine 0.99 MG/DL Random Glucose 209 MG/DL Total Protein 7.7 GM/DL Albumin 3.6 GM/DL Calcium Level 9.0 MG/DL Alkaline Phosphatase 80 U/L Aspartate Amino Transf (AST/SGOT) 11 U/L Alanine Aminotransferase (ALT/SGPT) 25 U/L Total Bilirubin 0.4 MG/DL Sodium Level 138 MEQ/L Potassium Level 3.8 MEQ/L Chloride Level 104 MEQ/L Carbon Dioxide Level 24.7 MEQ/L Anion Gap 9 MEQ/L Estimat Glomerular Filtration Rate 89 ML/MIN Lipase 106 U/L Prothrombin Time 10.3 SEC Prothromb Time International Ratio 1.0 RATIO Activated Partial Thromboplast Time 26.8 SEC MDM Medical Decision Making Medical Screen Exam Complete: Yes Emergency Medical Condition: Yes Medical Record Reviewed: Yes Differential Diagnosis Incarcerated hernia, diverticulitis, adhesions, bowel obstruction, perforation Narrative Course 76-year-old male with history of abdominal surgeries, diabetes, hypertension presents to the emergency room for evaluation of periumbilical abdominal pain for the past day. He has associated nausea with 3 episodes of nonbloody, nonbilious vomiting. He had a normal bowel movement today. Denies any other complaints including chest pain, shortness of breath, or diaphoresis. The exam is reassuring. Patient resting comfortably in bed. Abdomen is soft but tender to palpation over the periumbilical region. Mild guarding. IV access established and basic labs obtained. EKG shows sinus rhythm with rate of [address] changes. Patient is hypertensive. CBC and CMP are essentially unremarkable. UA shows evidence of urinary tract infection for which patient was given [address] the abdomen and pelvis with IV contrast ordered and pending. Patient signed out to nighttime provider pending results. Scripts Nitrofurantoin Monohydrate Macrocrystals (Macrobid) 100 Mg Capsule 100 MG PO BID for Infection for 10 Days, #20 CAP 0 Refills Prov: Casey eLyva MD 09/12/17 Condition: Stable Juliane Stanton Sep 11, 2017 22:20
[2017-09-11 22:44] VITALS: BP 162/81; PULSE 67; RESP 18; O2SAT 100
[2017-09-11] MEDS ORDERED: IOHEXOL 350 MG/ML 10 ML VIAL (for RAD DIAG) IVCONTRAST ONE (23:25)
--- NOTE | 2017-09-11 23:48 | RADRPT ---
EXAM DATE/TIME: 09/11/2017 23:18 [place] COMPARISON: MRI LUMBAR SPINE W/O CONTRAST, November 10, 2016, 18:25. CT ABDOMEN & PELVIS W/O CONTRAST, June 262016, 20:11. CT ABDOMEN & PELVIS W CONTRAST, April 29, 2016, 21:40. INDICATIONS : Periumbilical abdominal pain today. IV CONTRAST: 95 cc Omnipaque 350 (iohexol) IV ORAL CONTRAST: Prescribed oral contrast ingested. RADIATION DOSE: 6.64 CTDIvol (mGy) MEDICAL HISTORY : Cardiovascular disease. Stroke Hypertension.Hiatal hernia. Diabetes. SURGICAL HISTORY : None. ENCOUNTER: Initial ACUITY: 1 day PAIN SCALE: 9/10 LOCATION: medial abdomen TECHNIQUE: Volumetric scanning of the abdomen and pelvis was performed. Using automated exposure control and ad justment of the mA and/or kV according to patient size, radiation dose was kept as low as reasonably achievable to obtain optimal diagnostic quality images. DICOM format image data is available electro nically for review and comparison. FINDINGS: LOWER LUNGS: The visualized lower lungs are clear. LIVER: Homogeneous density without lesion. There is no dilation of the biliary tree. No calcified gallston es. SPLEEN: Normal size without lesion. PANCREAS: Within normal limits. KIDNEYS: Renal cysts are seen bilaterally measuring up to 3.6 cm on the right and 2.7 cm on the left. No renal stones or hydronephrosis is seen. ADRENAL GLANDS: Within normal limits. VASCULAR: There is no aortic aneurysm. Atherosclerotic calcifications are seen. BOWEL/MESENTERY: The stomach, small bowel, and colon demonstrate no acute abnormality. There is no free intraperitone al air or fluid. There do appear to be bowel randy at the cecum. The appendix is not clearly identi fied. Significant inflammatory change is not seen throughout the abdomen and pelvis. ABDOMINAL WALL: There is an increased soft tissue density identified in the paraumbilical region of the anterior abdo jacky wall in the subcutaneous fat. This appears unchanged from the prior exam. This likely stable re presents postoperative change. RETROPERITONEUM: There is no lymphadenopathy. BLADDER: The bladder is only mildly distended. The bladder wall appears thickened. This is likely secondary to lack of distention. REPRODUCTIVE: Within normal limits. INGUINAL: There is no lymphadenopathy or hernia. MUSCULOSKELETAL: There several small sclerotic lesions seen in the thoracic spine, lumbar spine, and the pelvis. These are nonspecific. CONCLUSION: 1. No acute abnormality seen. 2. Stable postoperative change in the superficial fat in the midline. 3. Nonspecific small sclerotic lesions seen throughout the bony structures. These could be bone islan ds. Other causes for sclerotic lesions including metastatic lesions could have similar appearance. Th debbi could be further evaluated with a bone scan 2 degenerative metabolically active or not. 4. Renal cysts. Nimesh Wilde MD on September 11, 2017 at 23:37 Board Certified Radiologist. This report was verified electronically.
[2017-09-12] MEDS ORDERED: MACR100C2 PO (00:17)
--- NOTE | 2017-09-12 00:20 | PD ---
Physical Exam Date Seen by Provider: Sep 12, 2017 Time Seen by Provider: 23:00 Narrative I'm seeing this patient with Juliane Stanton PA-C. Patient presented with plates and nausea vomiting in periumbilical discomfort. There is no reported fevers, chills. The patient's recently had a indwelling Avila catheter that was removed. Patient's urinalysis shows evidence of an infection. A CT scan was ordered to rule out intra-abdominal pathology. CT scan shows no obvious acute pathology. There is sclerotic lesions noted in the pelvis. Recommendation is that he have an outpatient bone scan. I discussed the findings with the patient. I discussed that we would be treating his urinary tract infection with antibiotic. He's been given 1 g of Rocephin times one dose here in the emergency department. He asked that I give him something to help him sleep tonight. He'll be given a Vistaril tablet at discharge. His son is picking him up and will take him home. He'll have his prescription filled tomorrow and will start his Macrobid then. The patient is instructed to follow up with Dr. Winters. He'll need to have outpatient follow up for the sclerotic lesions of the pelvis. Data Data Last Documented VS Vital Signs Date Time Temp Pulse Resp B/P (MAP) Pulse Ox O2 Delivery O2 Flow Rate FiO2 09/11/17 22:44 67 18 162/81 (108) 100 Room Air 09/11/17 21:01 98.4 Orders Orders Complete Blood Count With Diff (09/11/17 21:25) Comprehensive Metabolic Panel (09/11/17 21:25) Urinalysis - C+S If Indicated (09/11/17 21:25) Iv Access Insert/Monitor (09/11/17 21:25) Oxygen Administration (09/11/17 21:25) Oximetry (09/11/17 21:25) Lipase (09/11/17 21:25) Electrocardiogram (09/11/17 ) Prothrombin Time / Inr (Pt) (09/11/17 21:41) Act Partial Throm Time (Ptt) (09/11/17 21:41) Ct Abd/Pel W Iv Contrast(Rout) (09/11/17 21:41) Ecg Monitoring (09/11/17 21:41) Sodium Chloride 0.9% Flush (Ns Flush) (09/11/17 21:45) Oral Contrast - Adult (09/11/17 22:04) Urine Culture (09/11/17 21:27) Diatrizoate Liq ( Gastroview Liq) (09/11/17 22:07) Ceftriaxone Inj (Rocephin Inj) (09/11/17 22:15) Iohexol 350 Inj (Omnipaque 350 Inj) (09/11/17 23:25) Labs Laboratory Tests Test 09/11/17 21:27 09/11/17 21:45 White Blood Count 5.5 TH/MM3 Red Blood Count 3.98 MIL/MM3 Hemoglobin 11.7 GM/DL Hematocrit 35.7 % Mean Corpuscular Volume 89.6 FL Mean Corpuscular Hemoglobin 29.3 PG Mean Corpuscular Hemoglobin Concent 32.7 % Red Cell Distribution Width 15.0 % Platelet Count 291 TH/MM3 Mean Platelet Volume 8.6 FL Neutrophils (%) (Auto) 49.6 % Lymphocytes (%) (Auto) 39.7 % Monocytes (%) (Auto) 8.8 % Eosinophils (%) (Auto) 0.8 % Basophils (%) (Auto) 1.1 % Neutrophils # (Auto) 2.7 TH/MM3 Lymphocytes # (Auto) 2.2 TH/MM3 Monocytes # (Auto) 0.5 TH/MM3 Eosinophils # (Auto) 0.0 TH/MM3 Basophils # (Auto) 0.1 TH/MM3 CBC Comment DIFF FINAL Differential Comment Urine Color YELLOW Urine Turbidity CLOUDY Urine pH 8.0 Urine Specific [place] 1.018 Urine Protein 30 mg/dL Urine Glucose (UA) 150 mg/dL Urine Ketones NEG mg/dL Urine Occult Blood TRACE Urine Nitrite NEG Urine Bilirubin NEG Urine Urobilinogen LESS THAN 2.0 MG/DL Urine Leukocyte Esterase LARGE Urine RBC LESS THAN 1 /hpf Urine WBC /hpf Urine WBC Clumps RARE Urine Triple Phosphate Crystals OCC /hpf Urine Bacteria MANY /hpf Microscopic Urinalysis Comment CULTURE INDICATED Blood Urea Nitrogen 17 MG/DL Creatinine 0.99 MG/DL Random Glucose 209 MG/DL Total Protein 7.7 GM/DL Albumin 3.6 GM/DL Calcium Level 9.0 MG/DL Alkaline Phosphatase 80 U/L Aspartate Amino Transf (AST/SGOT) 11 U/L Alanine Aminotransferase (ALT/SGPT) 25 U/L Total Bilirubin 0.4 MG/DL Sodium Level 138 MEQ/L Potassium Level 3.8 MEQ/L Chloride Level 104 MEQ/L Carbon Dioxide Level 24.7 MEQ/L Anion Gap 9 MEQ/L Estimat Glomerular Filtration Rate 89 ML/MIN Lipase 106 U/L Prothrombin Time 10.3 SEC Prothromb Time International Ratio 1.0 RATIO Activated Partial Thromboplast Time 26.8 SEC [facility] Medical Record Reviewed: Yes Supervised Visit with MONTY: Yes Narrative Course 76-year-old male presents with periumbilical discomfort associated nausea vomiting. The patient has urinary tract infection. Cultures have been sent out. Patient's white blood cell count within normal limits. The patient is afebrile. He's been given 1 g of Rocephin. He'll be given a prescription for Macrobid 100 mg twice a day 10 days. He'll follow up with his primary doctor for further evaluation as well as evaluation of the sclerotic lesion seen on CT scan. Diagnosis Primary Impression: Urinary tract infection Additional Impressions: Nausea & vomiting sclerotic lesions of the pelvis Diabetes mellitus Additional Instruction: Follow up with her primary care physician for outpatient evaluation of the sclerotic lesions seen in her pelvis on CAT scan. Return if feeling worse. Med/Other Pt SpecificInfo: Prescription(s) given Scripts Nitrofurantoin Monohydrate Macrocrystals (Macrobid) 100 Mg Capsule 100 MG PO BID for Infection for 10 Days, #20 CAP 0 Refills Prov: Casey Leyva MD 09/12/17 Disposition: 01 DISCHARGE HOME Condition: Stable Casey Leyva MD Sep 12, 2017 00:20
[2017-09-12] MEDS ORDERED: hydrOXYzine PAMOATE 25 MG CAP PO ONE (00:30)
--- NOTE | 2017-09-12 08:57 | EKG ---
Date Performed: 09/11/2017 Time Performed: 21:40:56 PTAGE: 76 years EKG: Sinus rhythm BORDERLINE LEFT AXIS DEVIATION VOLTAGE CRITERIA FOR LVH NONSPECIFIC T-WAVE ABNORMALITY ABNORMAL ECG Compared to prior electrocardiogram, Premature atrial contraction no longer present. DOCTOR: Feng Joy Interpretating Date/Time 09/12/2017 08:56:56
== END 2017-09-12 01:02 | disposition home or self-care (01) ==
LOC: NEPC 20:55
DX: N39.0 Urinary tract infection, site not specified (principal); B96.4 Proteus (mirabilis) (morganii) as the cause of diseases classified elsewhere; E11.9 Type 2 diabetes mellitus without complications; I10 Essential (primary) hypertension; I48.91 Unspecified atrial fibrillation; Z72.0 Tobacco use; Z79.84 Long term (current) use of oral hypoglycemic drugs
CPT/HCPCS: 74177; 80053; 81001; 83690; 85025; 85610; 85730; 87077; 87086; 87186; 93005; 96365; 96366; 99285; J0696; Q0177; Q9963; Q9967

== ENCOUNTER 2018-03-08 16:38 | Emergency (ER) | payer OTHER ==
[~2018-03-08] VITALS: Ht 185.4 cm; Wt 75.0 kg
[~2018-03-08 16:38] MED LIST changes: +MACR100C2 PO
[2018-03-08 16:48] VITALS: BP 144/86; PULSE 90; RESP 18; TEMP 99; O2SAT 98
--- NOTE | 2018-03-08 17:39 | PD ---
HPI Chief Complaint: Complaint Time Seen by Provider: 17:37 Travel History International Travel<30 days: No Contact w/Intl Traveler<30days: No Traveled to known affect area: No History of Present Illness HPI 77-year-old male with history of hypertension, A. fib, CVA, diabetes, presents emergency department for evaluation of 2 days of urinary retention. Patient has had this issue in the past. He has had Avila catheter placed and discharged with it to follow-up with urology. Patient states he has significant suprapubic pain and pressure. He states he is only dribbling urine from his penis. He denies any fever chills. Pain does not radiate anywhere. He has no other symptoms to report. PFSH Past Medical History Hx Anticoagulant Therapy: Yes (ASPRIN ) Atrial Fibrillation: Yes Blood Disorders: No Anxiety: Yes Cancer: No Cardiovascular Problems: Yes High Cholesterol: Yes Chemotherapy: No Cerebrovascular Accident: Yes (2008) Diabetes: Yes Diminished Hearing: No Endocrine: Yes Gastrointestinal Disorders: No Genitourinary: No Hiatal Hernia: Yes Hypertension: Yes Immune Disorder: No Implanted Vascular Access Dvce: No Musculoskeletal: No Neurologic: No Psychiatric: No Reproductive: No Respiratory: No Past Surgical History Abdominal Surgery: Yes Other Surgery: Yes (hernia surgery, twisted colon surgery) Social History Alcohol Use: No Tobacco Use: Yes Substance Use: No Allergies-Medications (Allergen,Severity, Reaction): Coded Allergies: No Known Allergies (Verified Adverse Reaction, Unknown, 09/11/17) Reported Meds & Prescriptions Reported Meds & Active Scripts Active Reported Aspirin 81 Mg Chew 81 Mg CHEW DAILY Metformin ER (Metformin HCl) 1,000 Mg Booker 1,000 Mg PO DAILY With evening meal Lorazepam 0.5 Mg Tab 0.5 Mg PO BID PRN Lisinopril 20 Mg Tab 20 Mg PO DAILY Amlodipine (Amlodipine Besylate) 5 Mg Tab 5 Mg PO DAILY Review of Systems Except as stated in HPI: all other systems reviewed are Neg Physical Exam Narrative GENERAL: Well-nourished, well-developed male patient, ambulatory and in no acute distress. SKIN: Focused skin assessment warm/dry. HEAD: Normocephalic. EYES: No scleral icterus. No injection or drainage. NECK: Supple, trachea midline. No JVD or lymphadenopathy. CARDIOVASCULAR: Regular rate and rhythm without murmurs, gallops, or rubs. RESPIRATORY: Breath sounds equal bilaterally. No accessory muscle use. GASTROINTESTINAL: Abdomen soft, nondistended. Suprapubic tenderness to palpation. The bladder is palpable, distended. Mild guarding. No rebound tenderness GENITOURINARY: Uncircumcised. There is an area of excoriation beneath the foreskin. Testes descended bilaterally without evidence of rotation. No lesions or erythema. No urethral discharge. MUSCULOSKELETAL: No cyanosis, or edema. BACK: Nontender without obvious deformity. No CVA tenderness. Data Data Last Documented VS Vital Signs Date Time Temp Pulse Resp B/P (MAP) Pulse Ox O2 Delivery O2 Flow Rate FiO2 03/08/18 17:58 74 18 164/87 (112) 96 Room Air 03/08/18 16:48 99.0 Orders Orders Iv Access Insert/Monitor (03/08/18 17:38) Complete Blood Count With Diff (03/08/18 17:38) Basic Metabolic Panel (Bmp) (03/08/18 17:38) Urinalysis - C+S If Indicated (03/08/18 17:38) Urinary Catheter Insert/Apply (03/08/18 17:38) Potassium Chloride (Kcl) (03/08/18 19:15) Labs Laboratory Tests Test 03/08/18 18:00 White Blood Count 7.0 TH/MM3 Red Blood Count 3.97 MIL/MM3 Hemoglobin 11.9 GM/DL Hematocrit 35.4 % Mean Corpuscular Volume 89.1 FL Mean Corpuscular Hemoglobin 30.0 PG Mean Corpuscular Hemoglobin Concent 33.7 % Red Cell Distribution Width 15.6 % Platelet Count 256 TH/MM3 Mean Platelet Volume 8.8 FL Neutrophils (%) (Auto) 71.3 % Lymphocytes (%) (Auto) 21.9 % Monocytes (%) (Auto) 6.4 % Eosinophils (%) (Auto) 0.1 % Basophils (%) (Auto) 0.3 % Neutrophils # (Auto) 5.0 TH/MM3 Lymphocytes # (Auto) 1.5 TH/MM3 Monocytes # (Auto) 0.4 TH/MM3 Eosinophils # (Auto) 0.0 TH/MM3 Basophils # (Auto) 0.0 TH/MM3 CBC Comment DIFF FINAL Differential Comment Urine Color YELLOW Urine Turbidity CLEAR Urine pH 5.0 Urine Specific [place] 1.012 Urine Protein 30 mg/dL Urine Glucose (UA) NEG mg/dL Urine Ketones TRACE mg/dL Urine Occult Blood SMALL Urine Nitrite NEG Urine Bilirubin NEG Urine Urobilinogen LESS THAN 2 mg/dL Urine Leukocyte Esterase NEG Urine RBC 3 /hpf Urine WBC LESS THAN 1 /hpf Urine Mucus FEW /lpf Microscopic Urinalysis Comment CULT NOT INDICATED Blood Urea Nitrogen 15 MG/DL Creatinine 0.93 MG/DL Random Glucose 111 MG/DL Calcium Level 9.1 MG/DL Sodium Level 140 MEQ/L Potassium Level 3.1 MEQ/L Chloride Level 104 MEQ/L Carbon Dioxide Level 21.5 MEQ/L Anion Gap 15 MEQ/L Estimat Glomerular Filtration Rate 95 ML/MIN MDM Medical Decision Making Medical Screen Exam Complete: Yes Emergency Medical Condition: Yes Medical Record Reviewed: Yes Differential Diagnosis Urinary retention versus obstruction versus UTI versus renal calculi Narrative Course 77-year-old male presents emergency department for evaluation of urinary retention 2 days. Patient appears well. His vital signs are stable. Urine catheter is placed with 800 mL of clear yellow urine immediately out. Patient verbalizes relief. Laboratory Tests Test 03/08/18 18:00 White Blood Count 7.0 TH/MM3 Red Blood Count 3.97 MIL/MM3 Hemoglobin 11.9 GM/DL Hematocrit 35.4 % Mean Corpuscular Volume 89.1 FL Mean Corpuscular Hemoglobin 30.0 PG Mean Corpuscular Hemoglobin Concent 33.7 % Red Cell Distribution Width 15.6 % Platelet Count 256 TH/MM3 Mean Platelet Volume 8.8 FL Neutrophils (%) (Auto) 71.3 % Lymphocytes (%) (Auto) 21.9 % Monocytes (%) (Auto) 6.4 % Eosinophils (%) (Auto) 0.1 % Basophils (%) (Auto) 0.3 % Neutrophils # (Auto) 5.0 TH/MM3 Lymphocytes # (Auto) 1.5 TH/MM3 Monocytes # (Auto) 0.4 TH/MM3 Eosinophils # (Auto) 0.0 TH/MM3 Basophils # (Auto) 0.0 TH/MM3 CBC Comment DIFF FINAL Differential Comment Urine Color YELLOW Urine Turbidity CLEAR Urine pH 5.0 Urine Specific [place] 1.012 Urine Protein 30 mg/dL Urine Glucose (UA) NEG mg/dL Urine Ketones TRACE mg/dL Urine Occult Blood SMALL Urine Nitrite NEG Urine Bilirubin NEG Urine Urobilinogen LESS THAN 2 mg/dL Urine Leukocyte Esterase NEG Urine RBC 3 /hpf Urine WBC LESS THAN 1 /hpf Urine Mucus FEW /lpf Microscopic Urinalysis Comment CULT NOT INDICATED Blood Urea Nitrogen 15 MG/DL Creatinine 0.93 MG/DL Random Glucose 111 MG/DL Calcium Level 9.1 MG/DL Sodium Level 140 MEQ/L Potassium Level 3.1 MEQ/L Chloride Level 104 MEQ/L Carbon Dioxide Level 21.5 MEQ/L Anion Gap 15 MEQ/L Estimat Glomerular Filtration Rate 95 ML/MIN Patient will be discharged to follow with urology. Plan is discussed with patient. Him and his family members are educated on care. They agreed return immediately with acute worsening symptoms. Diagnosis Primary Impression: Urinary retention Referrals: Urologist Patient Instructions: Avila Catheter Placement and Care (ED), General Instructions, Urinary Leg Bag (GEN) Additional Instructions: Contact your urologist and schedule an appointment sooner than your already scheduled appointment. Within the next week would be ideal Return immediately with acute worsening symptoms Med/Other Pt SpecificInfo: No Change to Meds Disposition: 01 DISCHARGE HOME Condition: Stable Leanne Vázquez Mar 08, 2018 17:39
[2018-03-08 17:58] VITALS: BP 164/87; PULSE 74; RESP 18; O2SAT 96
[2018-03-08 18:36] LABS: BASOPHIL % 0.3 % (0.0-2.0); EOSINOPHIL % 0.1 % (0.0-4.0); HEMATOCRIT 35.4 % (39.0-51.0); HEMOGLOBIN 11.9 GM/DL (13.0-17.0); LYMPH % 21.9 % (9.0-44.0); LYMPHOCYTE # 1.5 TH/MM3 (1.0-4.8); MEAN CELL VOLUME 89.1 FL (80.0-100.0); MEAN CORPUSCULAR HGB CONC 33.7 % (32.0-36.0); MEAN PLATELET VOLUME 8.8 FL (7.0-11.0); MONO % 6.4 % (0.0-8.0); MONOCYTE # 0.4 TH/MM3 (0-0.9); NEUT % 71.3 % (16.0-70.0); PLATELET COUNT 256 TH/MM3 (150-450); RED BLOOD COUNT 3.97 MIL/MM3 (4.50-5.90); RED CELL DISTRIBUTION WIDTH 15.6 % (11.6-17.2)
[2018-03-08 18:48] LABS: BILIRUBIN, URINE NEG (NEG); BLOOD, URINE SMALL (NEG); GLUCOSE,URINE NEG (NEG); KETONE, URINE TRACE mg/dL (NEG); MUCUS URINE FEW /lpf (OCC); NITRITE,URINE NEG (NEG); URINE COLOR YELLOW (YELLW/STRAW); URINE LEUKOCYTE ESTERASE NEG (NEG)
[2018-03-08 19:09] LABS: BICARBONATE 21.5 MEQ/L (21.0-32.0); CALCIUM 9.1 MG/DL (8.5-10.1); CREATININE 0.93 MG/DL (0.60-1.30)
[2018-03-08] MEDS ORDERED: POTASSIUM CHLORIDE 20 MEQ CONTROLLED RELEASE TAB PO ONE (19:15)
[2018-03-08 19:46] VITALS: BP 160/72; PULSE 70; RESP 16; O2SAT 98
== END 2018-03-08 20:12 | disposition home or self-care (01) ==
LOC: NEPC 16:38
DX: R33.9 Retention of urine, unspecified (principal); E11.9 Type 2 diabetes mellitus without complications; I10 Essential (primary) hypertension; Z72.0 Tobacco use
CPT/HCPCS: 51702; 80048; 81001; 85025